=== PATIENT | male | born 1990 | race Caucasian/White ===

== ENCOUNTER 2019-09-03 14:36 | Emergency (ER) | payer OTHER ==
[~2019-09-03] VITALS: Ht 180.3 cm; Wt 105.0 kg
[2019-09-03] MEDS ORDERED: IBUPROFEN 800MG TABLET PO ONE (15:00)
[2019-09-03] MEDS ORDERED: TETANUS, DIPHTHERIA, PERTUSSIS VAC/PF 0.5ML (>7YR OLD) IM ONE (15:00)
[2019-09-03] MEDS ORDERED: BACITRACIN ZINC OINT UDPKT TOP ONE (15:00)
[2019-09-03 16:11] VITALS: BP 117/80
== END 2019-09-03 16:13 | disposition home or self-care (01) ==
LOC: ER 14:49
DX: S60.212A Contusion of left wrist, initial encounter (principal); S60.211A Contusion of right wrist, initial encounter; X58.XXXA Exposure to other specified factors, initial encounter; Y93.89 Activity, other specified; Y92.89 Other specified places as the place of occurrence of the external cause; Y99.8 Other external cause status
CPT/HCPCS: 73110; 73130; 90471; 90715; 99283